=== PATIENT | female | born 1940 | race Two or more races ===

== ENCOUNTER 2019-07-19 10:02 | Emergency (ER) | payer MEDICAID ==
[~2019-07-19] VITALS: Ht 160 cm; Wt 58.5 kg
[2019-07-19 11:03] LABS: BG BASE EXCESS 1.1 mmol/L (-2.0-2.0); BG CARBOXYHEMOGLOBIN 0.3 % (0.5-1.5); BG DEOXYHEMOGLOBIN 4.6 % (0.0-5.0); BG FRACTION INSPIRED OXYGEN 21; BG METHEMOGLOBIN 0.2 % (0.0-1.5); BG OXYGEN SATURATION 95.4 % (92.0-98.5); BG OXYHEMOGLOBIN 94.9 % (94.0-97.0); BG PCO2 37.2 mmHg (35.0-45.0); BG PH 7.445 (7.350-7.450); BG PO2 74.7 mmHg (75.0-100.0); BG SAMPLE SITE RIGHT BRACHIAL; BG TOTAL HEMOGLOBIN 12.8 g/dL (12.0-18.0); BG VENT MODE ROOM AIR
[2019-07-19 11:14] LABS: BASOPHILS % 0.6 % (0.0-2.0); EOSINOPHILS % 0.9 % (0.0-5.0); HEMATOCRIT. 39.5 % (36.0-48.0); HEMOGLOBIN. 13.4 g/dL (12.0-16.0); MEAN CORPUSCULAR HEMOGLOBIN 27.3 pg (28.0-32.0); MEAN CORPUSCULAR VOLUME 80.8 fL (81.0-99.0); MONOCYTES % 5.7 % (2.0-8.0); NEUTROPHILS % 76.8 % (40.0-76.0); PLATELET 402 x1000/uL (130-400); RED BLOOD CELL COUNT 4.89 mill/uL (4.2-5.4); RED CELL DISTRIBUTION WIDTH 13.7 % (11.6-14.6)
[2019-07-19 11:20] LABS: CHLORIDE 98 mEq/L (98-107); PROTHROMBIN TIME 10.5 sec (9.6-11.0)
[2019-07-19 12:55] LABS: CLARITY URINE CLEAR (CLEAR); COLOR URINE YELLOW (YELLOW); KETONES URINE NEGATIVE (NEGATIVE); LEUKOCYTE ESTERASE URINE NEGATIVE (NEGATIVE); NITRITE URINE NEGATIVE (NEGATIVE); OCCULT BLOOD URINE NEGATIVE (NEGATIVE); PH URINE 6.5 (4.5-8.0); PROTEIN URINE NEGATIVE (NEGATIVE); UROBILINOGEN URINE 0.2 E.U./dL (0.2-1.0)
[2019-07-19] MEDS: ACETAMINOPHEN 325MG TABLET PO ONE ×2 (13:45→14:10)
[2019-07-19 14:20] VITALS: BP 126/74
== END 2019-07-19 14:29 | disposition home or self-care (01) ==
LOC: ER 10:02 → CANBEDREQ 16:47
DX: B34.9 Viral infection, unspecified (principal); M79.661 Pain in right lower leg; E11.9 Type 2 diabetes mellitus without complications; I10 Essential (primary) hypertension; Z90.710 Acquired absence of both cervix and uterus; Z87.891 Personal history of nicotine dependence
CPT/HCPCS: 36415; 36600; 71045; 80053; 81003; 82375; 82805; 83605; 84145; 84484; 85025; 87077; 87186; 87420; 87804; 93005; 93971; 99285